=== PATIENT | male | born 1970 | race Caucasian/White ===

== ENCOUNTER 2021-01-12 15:04 | Emergency (ER) | payer OTHER, SELFPAY ==
[2021-01-12 15:09] VITALS: BP 134/89; PULSE 107; RESP 18; TEMP 36.8; O2SAT 96; BMI 28.1
--- NOTE | 2021-01-12 15:52 | W.ED.BACK ---
HPI - Back Pain/Injury General: Chief Complaint: Back Pain/Injury Stated Complaint: LOWER BACK POPPED , NOW PAIN/DIFFICULTY WALKING Time Seen by Provider: 01/12/21 15:17 Source: patient Mode of arrival: ambulatory Limitations: no limitations History of Present Illness: HPI Narrative: Patient presents with right hip and upper leg pain. Patient reports pain started about 1 week ago. Patient reports worsening pain starting on Wednesday after he got off work. 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 Patient appears well. Patient denies any change in bowel or bladder habits. Patient was seen yesterday at urgent care and was started on diclofenac for muscle relaxer and had minimal relief. Patient denies any routine medications or medical problems. Review of Systems General: Reports: 10 or more systems reviewed and unremarkable except in HPI and below Musc: Reports: other (Right buttock and thigh pain.) Physical Exam Const: COMMON NORMALS: no acute distress and patient oriented x3 GENERAL APPEARANCE: cooperative HENMT: COMMON NORMALS: normocephalic and Normal external nose present HEAD & SCALP: normal to inspection and normocephalic NOSE: Normal external nose present MOUTH: Normal oral and palatal mucosa present Eye: GENERAL EYE: appearance normal, both eyes and all related structures Neck/C-Spine: COMMON NORMALS: full ROM Lymph: LYMPHATIC: no lymphadenopathy noted Chest: COMMONS NORMALS: normal inspection of the chest Resp: COMMON NORMALS: normal respiratory effort EFFORT & INSPECTION: Yes able to speak in complete sentences Cardio: COMMON NORMALS: regular rate and regular rhythm RATE: regular rate RHYTHM: regular rhythm GI: COMMON NORMALS: non-tender Back/Pelvis: COMMON NORMALS: thoracic and lumbar spine normal to inspection Extremity: NARRATIVE EXTREMITY EXAM: Muscle tightness in the right buttock and the right posterior leg. Patient has antalgic gait. Neuro: COMMON NORMALS: patient oriented x3 and moves all extremities Psych: COMMON NORMALS: mental status grossly normal and cooperative Skin: COMMON NORMALS: no rashes or lesions noted GENERAL SKIN EXAM: no rashes or lesions noted Course Vital Signs: Vital signs: Vital Signs Temperature 98.2 F 01/12/21 15:09 Pulse Rate 107 H 01/12/21 15:09 Respiratory Rate 18 01/12/21 15:09 Blood Pressure 134/89 01/12/21 15:09 Pulse Oximetry 96 02/21/21 15:09 MDM - Back Pain/Injury MDM Narrative: Medical decision making narrative: Patient comes in for persistent low back pain and discomfort radiating down his right buttock and leg. On exam there is no tenderness to the lumbar spine. Pain seems to be more in the right lower buttock and right posterior thigh region. Patient is guarded with movement of the right lower leg. Differential diagnosis includes piriformis syndrome, sciatica, lumbar strain. No signs of cauda equina syndrome or serious illness or injury was noted. Reviewed exam with patient recommended treatment with pain relievers and anti-inflammatories. Discussed minimal benefit of muscle relaxers. Also discussed the importance of avoiding muscle relaxers and narcotic pain medications when operating equipment or putting others or themselves at risk. Patient reported understanding of care plan and need for follow-up or return. Discharge Plan Discharge Patient Disposition: Home Clinical Impression: Strain of right piriformis muscle Qualifiers: Encounter type: initial encounter Qualified Code(s): S76.311A - Strain of muscle, fascia and tendon of the posterior muscle group at thigh level, right thigh, initial encounter Condition: Stable Prescriptions: New hydrocodone-acetaminophen 5-325 mg tablet 1 tab PO Q6H PRN (Reason: pain) Qty: 12 RF: 0 Discharge Orders: Discharge ED (Routine); Ordered 01/12/21 Ordered By: Pardeep Louie Referrals: Sonal Haro FNP [Primary Care Provider] - Discharge Diet: Usual diet Discharge Activity: Increase activity as tolerated Patient Instructions: Musculoskeletal Pain (ED), Opioid Safety Activity Restrictions/Additional Instructions: Activity as tolerated. Gentle stretching and range of motion exercises. Continue with diclofenac twice a day. Use hydrocodone as needed for breakthrough pain. Avoid the use of medications such as hydrocodone or muscle relaxer when driving or operating machinery that may endanger yourself or others. Follow-up with primary care as needed for further treatment. Return to the emergency department for new concerns. Coding Level of Care Code ED Senior Clinical Research Associate for [facility]
[2021-01-12] MEDS: HYDROcodone-acetaminophen 10-325 mg Tablet 1 TAB PO (15:56)
[2021-01-12] MEDS: ketorolac 30 mg/mL INJ IM (15:57)
[2021-01-12] MEDS: orphenadrine 30 mg/mL Inj 2 mL 60 MG IM (15:57)
== END 2021-01-12 16:08 | disposition home or self-care (01) ==
PROVIDERS: Emergency Provider Nurse Practitioner Family; PCP Nurse Practitioner Family
DX: S76.311A Strain of muscle, fascia and tendon of the posterior muscle group at thigh level, right thigh, initial encounter (principal); X58.XXXA Exposure to other specified factors, initial encounter
CPT/HCPCS: 96372; 99283; J1885; J2360

== ENCOUNTER 2021-01-19 09:04 | Emergency (ER) | payer OTHER, SELFPAY ==
[2021-01-19 09:05] VITALS: BP 123/81; PULSE 88; RESP 18; O2SAT 97; BMI 30.4
--- NOTE | 2021-01-19 09:37 | W.ED.BACK ---
HPI - Back Pain/Injury General: Chief Complaint: Back Pain/Injury Stated Complaint: BACK INJURY/PAIN Time Seen by Provider: 01/19/21 09:18 History of Present Illness: HPI Narrative: Pleasant 50-year-old male patient presents to the emergency department due to posterior right hip pain. He reports approximately 2 weeks ago, was at work when he bent over, felt something pop in his back but did not experience pain until 1 week later. He states went to the chiropractor, [facility] chiropractor encouraged him to seek prescription for muscle relaxer and anti-inflammatory. He states went to urgent care, received prescription, did not alleviate pain, return to the emergency room for additional evaluation and treatment. He received a prescription of hydrocodone, but hydrocodone was not signed and he was not able to fill medication. [place] of state, works for the [employer]. He reports pain to the posterior hip and radiates down the right lower extremity. He denies bladder or bowel incontinence. He denies right lower extremity weakness. He states pain is an achy, intermittent pain that is worse with movement. He states also discomfort experienced with lying down at night. MD elicited complaint: back pain Pertinent past history: prior back pain Timing: intermittent and improved Pain scale (0-10): 2 Quality: sharp and aching Location: right lower back (Right posterior hip) Exacerbating factors: movement and walking Context: bending Associated symptoms: Reports no associated symptoms; Deny abdominal pain, chills, difficulty walking, dysuria, fever(s), nausea or vomiting Treatments prior to arrival: NSAIDS and prescription analgesics Work related injury: Yes Review of Systems General: Reports: 10 or more systems reviewed and unremarkable except in HPI and below Const: Denies: fever(s), chills or diaphoresis Eyes: Denies: blurry vision or eye redness ENMT: Denies: throat pain, dental pain or disequilibrium Card: Denies: chest pain, palpitations or irregular heart rhythm Resp: Denies: dyspnea, productive cough, non-productive cough or wheezing GI: Denies: abdominal pain, nausea or vomiting : Denies: dysuria Musc: Denies: neck pain, back pain, joint pain, joint swelling, joint stiffness or limited range of motion Skin/Breast: Denies: rash or pruritus Neuro: Reports: sensory changes (Right lower extremity); Denies: headache(s), numbness in extremities, weakness in extremities, lack of coordination, difficulty walking, confusion or behavioral changes Psych: Denies: anxiety, depression or sleeping more Addy/Lymph: Denies: easy bruising Physical Exam Const: COMMON NORMALS: no acute distress, patient oriented x3, healthy appearing and alert GENERAL APPEARANCE: cooperative, comfortable and well hydrated HENMT: COMMON NORMALS: normocephalic, Normal external nose present and moist oral mucous membranes HEAD & SCALP: normocephalic NOSE: Normal external nose present Eye: COMMON NORMALS: Equal, round and reactive pupils present and EOMs intact bilaterally GENERAL EYE: appearance normal, both eyes and all related structures PUPIL: Yes Equal, round and reactive pupils present Neck/C-Spine: COMMON NORMALS: full ROM, no lymphadenopathy and no meningeal signs GENERAL: Yes normal visual inspection and Yes trachea midline CERVICAL SPINE: Yes cervical ROM normal Lymph: LYMPHATIC: no lymphadenopathy noted Chest: COMMONS NORMALS: normal inspection of the chest Resp: COMMON NORMALS: normal respiratory effort, No retractions, No use of accessory muscles and clear to auscultation bilaterally EFFORT & INSPECTION: Yes able to speak in complete sentences, No labored and No audible wheezes AUSCULTATION: clear to auscultation bilaterally Cardio: COMMON NORMALS: regular rate, regular rhythm, S1 normal heart sound present, S2 normal heart sound present and Peripheral pulses 2+ throughout RATE: regular rate RHYTHM: regular rhythm HEART SOUNDS: S1 normal heart sound present and S2 normal heart sound present PERIPHERAL PULSES: Peripheral pulses 2+ throughout GI: COMMON NORMALS: Normal to inspection, nondistended, normoactive bowel sounds present, Soft to palpation and non-tender INSPECTION: Yes normal to inspection, No abdominal wall ecchymosis, No abdominal distension and No central obesity PALPATION: Yes Soft to palpation : COMMON NORMALS: Yes no CVA tenderness BLADDER/KIDNEY EXAM: Yes no CVA tenderness Back/Pelvis: COMMON NORMALS: no CVA tenderness, thoracic and lumbar spine normal to inspection and no thoracic nor lumbar tenderness LUMBAR SPINE/LOWER BACK: Yes lumbar ROM normal, No lumbar spinal tenderness, No paraspinal muscle spasm, Yes straight leg raise positive right and Yes other soft tissue findings Other lumbar soft tissue findings laterality: right PELVIS: Yes buttocks normal, No tenderness over symphysis pubis and Yes sciatic notch tenderness on the right SACRUM: no ecchymosis COCCYX: no swelling Extremity: COMMON NORMALS: normal to inspection and capillary refill normal Neuro: COMMON NORMALS: patient oriented x3 and no focal motor deficits SENSORIUM/ORIENTATION: Yes alert MENINGEAL SIGNS: Yes no meningeal signs SPEECH: speech normal GAIT: Yes Other gait observations present (Limping right lower extremity) SENSORY EXAM: No sensory level loss detected MONOFILAMENT EXAM PERFORMED: Yes Monofilament Exam (small fiber function): L great toe: normal, L 3rd toe: normal, L 5th toe: normal, R great toe: normal, R 3rd toe: normal and R 5th toe: normal MOTOR EXAM: 5/5 motor strength present throughout DEEP TENDON REFLEXES: Right ankle reflex intensity grade: 2+ and Left ankle reflex intensity grade: 2+ Psych: COMMON NORMALS: mental status grossly normal, Normal thought process present and cooperative ACTIVITY/MOTOR BEHAVIOR: Yes appropriate eye contact THOUGHT PROCESS: Normal thought process present Skin: COMMON NORMALS: no rashes or lesions noted and turgor normal GENERAL SKIN EXAM: no rashes or lesions noted and turgor normal Course Vital Signs: Vital signs: Vital Signs Pulse Rate 88 01/19/21 09:05 Respiratory Rate 18 01/19/21 09:05 Blood Pressure 123/81 01/19/21 09:05 Pulse Oximetry 97 01/19/21 09:05 MDM - Back Pain/Injury MDM Narrative: Medical decision making narrative: 50-year-old male patient presents to the emergency department due to continued sciatic pain on the left hip. Radiculopathy to the right lower extremity, moderate fill exam intact along with strength. No symptoms of cauda equina or concern for worsening symptoms as his pain has improved since previous visit. Previous hydrocodone prescription was not signed, case discussed with Dr. Posey, she agrees for use of hydrocodone. Prescription provided to the patient with opiate warnings and intended use. Discharge Plan Discharge Patient Disposition: Home Clinical Impression: Sciatic leg pain Strain of right piriformis muscle Qualifiers: Encounter type: initial encounter Qualified Code(s): S76.311A - Strain of muscle, fascia and tendon of the posterior muscle group at thigh level, right thigh, initial encounter Condition: Stable Prescriptions: New hydrocodone-acetaminophen 5-325 mg tablet 1 tab PO Q4H PRN (Reason: pain) Qty: 7 RF: 0 prednisone 20 mg tablet 20 mg PO BID 5 Days Qty: 10 RF: 0 No Action hydrocodone-acetaminophen 5-325 mg tablet 1 tab PO Q6H PRN (Reason: pain) Qty: 12 RF: 0 Discharge Orders: Discharge ED (Routine); Ordered 01/19/21 Ordered By: Alicia Fernando Referrals: Sonal Haro FNP [Primary Care Provider] - Discharge Diet: Usual diet Discharge Activity: Limit activity as instructed Patient Instructions: Sciatica (ED), Lumbar Radiculopathy (ED), Piriformis Syndrome (ED), Opioid Safety Activity Restrictions/Additional Instructions: Alternate cool compresses with warm moist heat to the affected area to help with pain Follow-up with your primary care provider if symptoms are not improved in 5 to 7 days May apply Salonpas, [id number] numbing medication/patches to the affected area to help with pain during the day Narcotics will cause drowsiness during the day so avoid use while at work and while driving. Avoid twisting bending or other activities that will increase sciatica pain. Coding Level of Care Code ED Lodging Facilities Manager for [facility]
== END 2021-01-19 09:58 | disposition home or self-care (01) ==
PROVIDERS: Emergency Provider Family Medicine; PCP Nurse Practitioner Family
DX: M54.32 Sciatica, left side (principal); S76.311A Strain of muscle, fascia and tendon of the posterior muscle group at thigh level, right thigh, initial encounter; X50.1XXA Overexertion from prolonged static or awkward postures, initial encounter
CPT/HCPCS: 99282